=== PATIENT | male | born 1995 | race African-American/Black ===

== ENCOUNTER 2017-02-20 06:26 | Emergency (ER) | payer SELFPAY ==
[2017-02-20] MEDS ORDERED: SODIUM CHLOR 0.9% 1000 ML INJ 1,000 ML IV SCH (07:09)
--- NOTE | 2017-02-20 07:13 | PD ---
HPI Chief Complaint: Flank/Kidney Pain Time Seen by Provider: 07:03 Travel History International Travel<30 days: No Contact w/Intl Traveler<30days: No Traveled to known affect area: No History of Present Illness HPI The patient is a 21-year-old [place] male who presents emergency department for flank pain and abdominal pain. The patient states his pain started last night, is located in the left mid back and left lower flank, radiates to left testicle. He denies any actual testicular pain. He does note mild discomfort with urination but denies any actual dysuria or hematuria. The patient does have a history of nephrolithiasis and previous kidney infections, denies any previous abdominal surgeries. The patient denies any nausea, vomiting, diarrhea, or change in bowel habits. The patient's last bowel movement was 2 days ago. He denies any associated fever, chills, or sweats. Symptoms are moderate without any alleviating or exacerbating factors. PFSH Past Medical History Medical History: Denies Significant Hx Diminished Hearing: No Medical other: Yes (KIDNEY INFECTIONS ) Past Surgical History Surgical History: No Previous Surgery Social History Alcohol Use: No Tobacco Use: Yes (1 PPD) Substance Use: No Allergies-Medications (Allergen,Severity, Reaction): Coded Allergies: No Known Allergies (Unverified , 02/20/17) Reported Meds & Prescriptions Reported Meds & Active Scripts Active No Active Prescriptions or Reported Medications Review of Systems Except as stated in HPI: all other systems reviewed are Neg General / Constitutional: No: Fever Cardiovascular: No: Chest Pain or Discomfort Respiratory: No: Shortness of Breath Gastrointestinal: Positive: Abdominal Pain, No: Nausea, Vomiting, Diarrhea Genitourinary: Positive: Flank Pain, No: Dysuria Skin: No Rash Physical Exam Narrative GENERAL: Awake, alert, pleasant 21-year-old [place] male who appears his stated age and is in no acute respiratory distress. SKIN: Focused skin assessment warm/dry. HEAD: Atraumatic. Normocephalic. EYES: Pupils equal and round. No scleral icterus. No injection or drainage. ENT: No nasal bleeding or discharge. Mucous membranes pink and moist. NECK: Trachea midline. No JVD. CARDIOVASCULAR: Regular rate and rhythm. No murmur appreciated. RESPIRATORY: No accessory muscle use. Clear to auscultation. Breath sounds equal bilaterally. GASTROINTESTINAL: Abdomen soft, non-tender, nondistended. Negative Garcia's. Negative McBurney's. Back: Negative CVA tenderness. Genitourinary: Circumcised phallus. Both testicles are descended, nontender to palpation. No tenderness over the epididymis. MUSCULOSKELETAL: No obvious deformities. No clubbing. No cyanosis. No edema. NEUROLOGICAL: Awake and alert. No obvious cranial nerve deficits. Motor grossly within normal limits. Normal speech. PSYCHIATRIC: Appropriate mood and affect; insight and judgment normal. Data Data Orders Complete Blood Count With Diff (02/20/17 07:09) Comprehensive Metabolic Panel (02/20/17 07:09) Lipase (02/20/17 07:09) Urinalysis - C+S If Indicated (02/20/17 07:09) Ct Abd/Pel W/O Iv Contrast (02/20/17 07:09) Iv Access Insert/Monitor (02/20/17 07:09) Ecg Monitoring (02/20/17 07:09) Oximetry (02/20/17 07:09) Morphine Inj (Morphine Inj) (02/20/17 07:15) Ondansetron Inj (Zofran Inj) (02/20/17 07:15) Sodium Chlor 0.9% 1000 Ml Inj (Ns 1000 M (02/20/17 07:09) Sodium Chloride 0.9% Flush (Ns Flush) (02/20/17 07:15) Ketorolac Inj (Toradol Inj) (02/20/17 07:15) Labs Laboratory Tests Test 02/20/17 02/20/17 06:55 08:10 White Blood Count 8.7 TH/MM3 Red Blood Count 5.45 MIL/MM3 Hemoglobin 15.4 GM/DL Hematocrit 47.8 % Mean Corpuscular Volume 87.7 FL Mean Corpuscular Hemoglobin 28.3 PG Mean Corpuscular Hemoglobin 32.2 % Concent Red Cell Distribution Width 14.0 % Platelet Count 248 TH/MM3 Mean Platelet Volume 8.1 FL Neutrophils (%) (Auto) 51.2 % Lymphocytes (%) (Auto) 38.1 % Monocytes (%) (Auto) 8.5 % Eosinophils (%) (Auto) 1.5 % Basophils (%) (Auto) 0.7 % Neutrophils # (Auto) 4.4 TH/MM3 Lymphocytes # (Auto) 3.3 TH/MM3 Monocytes # (Auto) 0.7 TH/MM3 Eosinophils # (Auto) 0.1 TH/MM3 Basophils # (Auto) 0.1 TH/MM3 CBC Comment DIFF FINAL Differential Comment Urine Color YELLOW Urine Turbidity CLEAR Urine pH 6.0 Urine Specific [place] 1.025 Urine Protein NEG mg/dL Urine Glucose (UA) NEG mg/dL Urine Ketones NEG mg/dL Urine Occult Blood NEG Urine Nitrite NEG Urine Bilirubin NEG Urine Urobilinogen 2.0 MG/DL Urine Leukocyte Esterase NEG Urine WBC LESS THAN 1 /hpf Urine Squamous Epithelial <1 /hpf Cells Urine Mucus FEW /lpf Microscopic Urinalysis Comment CULT NOT INDICATED Sodium Level 142 MEQ/L Potassium Level 4.1 MEQ/L Chloride Level 110 MEQ/L Carbon Dioxide Level 26.7 MEQ/L Anion Gap 5 MEQ/L Blood Urea Nitrogen 17 MG/DL Creatinine 1.10 MG/DL Estimat Glomerular Filtration 102 ML/MIN Rate Random Glucose 78 MG/DL Calcium Level 8.4 MG/DL Total Bilirubin 0.3 MG/DL Aspartate Amino Transf 13 U/L (AST/SGOT) Alanine Aminotransferase 16 U/L (ALT/SGPT) Alkaline Phosphatase 93 U/L Total Protein 6.3 GM/DL Albumin 3.3 GM/DL Lipase 121 U/L [facility] Medical Decision Making Medical Screen Exam Complete: Yes Emergency Medical Condition: Yes Medical Record Reviewed: Yes Interpretation(s) Last Impressions Abdomen/Pelvis CT 02/20/17 0709 Signed Impressions: Service Date/Time: Monday, February 20, 2017 07:22 - CONCLUSION: Very limited study due to lack of peritoneal fat and lack of intravenous/oral contrast. Large fluid collection or acute abnormality is not seen. Normal appendix not visualized. No renal calculi. Barron Benz MD Laboratory Tests Test 02/20/17 02/20/17 06:55 08:10 White Blood Count 8.7 TH/MM3 Red Blood Count 5.45 MIL/MM3 Hemoglobin 15.4 GM/DL Hematocrit 47.8 % Mean Corpuscular Volume 87.7 FL Mean Corpuscular Hemoglobin 28.3 PG Mean Corpuscular Hemoglobin 32.2 % Concent Red Cell Distribution Width 14.0 % Platelet Count 248 TH/MM3 Mean Platelet Volume 8.1 FL Neutrophils (%) (Auto) 51.2 % Lymphocytes (%) (Auto) 38.1 % Monocytes (%) (Auto) 8.5 % Eosinophils (%) (Auto) 1.5 % Basophils (%) (Auto) 0.7 % Neutrophils # (Auto) 4.4 TH/MM3 Lymphocytes # (Auto) 3.3 TH/MM3 Monocytes # (Auto) 0.7 TH/MM3 Eosinophils # (Auto) 0.1 TH/MM3 Basophils # (Auto) 0.1 TH/MM3 CBC Comment DIFF FINAL Differential Comment Urine Color YELLOW Urine Turbidity CLEAR Urine pH 6.0 Urine Specific [place] 1.025 Urine Protein NEG mg/dL Urine Glucose (UA) NEG mg/dL Urine Ketones NEG mg/dL Urine Occult Blood NEG Urine Nitrite NEG Urine Bilirubin NEG Urine Urobilinogen 2.0 MG/DL Urine Leukocyte Esterase NEG Urine WBC LESS THAN 1 /hpf Urine Squamous Epithelial <1 /hpf Cells Urine Mucus FEW /lpf Microscopic Urinalysis Comment CULT NOT INDICATED Sodium Level 142 MEQ/L Potassium Level 4.1 MEQ/L Chloride Level 110 MEQ/L Carbon Dioxide Level 26.7 MEQ/L Anion Gap 5 MEQ/L Blood Urea Nitrogen 17 MG/DL Creatinine 1.10 MG/DL Estimat Glomerular Filtration 102 ML/MIN Rate Random Glucose 78 MG/DL Calcium Level 8.4 MG/DL Total Bilirubin 0.3 MG/DL Aspartate Amino Transf 13 U/L (AST/SGOT) Alanine Aminotransferase 16 U/L (ALT/SGPT) Alkaline Phosphatase 93 U/L Total Protein 6.3 GM/DL Albumin 3.3 GM/DL Lipase 121 U/L Differential Diagnosis Differential diagnosis includes UTI, pyelonephritis, nephrolithiasis, epididymitis, constipation, diverticulitis. Narrative Course IV was established, labs are drawn and sent, and the patient was placed on cardiac telemetry monitoring and continuous pulse oximetry monitoring. The patient was administered morphine, Toradol, Zofran, and IV fluids. Patient's white count is unremarkable. UA is negative. CT is unremarkable. Laboratory evaluation is unremarkable, LFTs and lipase are normal. Patient's vitals are stable. I had a discussion with the patient regarding possibility of gonorrhea/ chlamydia. However, patient has only had one sexual partner in the last year, his fiance, he denies any history of previous STI. Patient is currently asymptomatic. Patient stable for outpatient follow-up. Diagnosis Primary Impression: Left flank pain Patient Instructions: General Instructions Additional Instructions: Please provide a patient a copy of CT results and lab results at discharge. Follow-up with your primary physician. Return if symptoms worsen or progress. Med/Other Pt SpecificInfo: No Change to Meds Scripts No Active Prescriptions or Reported Meds Disposition: 01 DISCHARGE HOME Condition: Stable Ren Coppola MD Feb 20, 2017 07:13
[2017-02-20] MEDS ORDERED: SODIUM CHLORIDE 0.9% FLUSH 10 ML FLUSH IV FLUSH PRN (07:15)
[2017-02-20] MEDS ORDERED: KETOROLAC TROMETHAMINE 30 MG/ML (IVP) VIAL IVP ONE (07:15)
[2017-02-20] MEDS ORDERED: ONDANSETRON HCL 4 MG/2 ML VIAL IVP ONE (07:15)
[2017-02-20] MEDS ORDERED: MORPHINE SULFATE 4 MG/ML INJ IV PUSH ONE (07:15)
[2017-02-20 07:41] LABS: AUTOMATED NEUTROPHIL # 4.4 TH/MM3 (1.8-7.7); BASOPHIL # 0.1 TH/MM3 (0-0.2); BASOPHIL % 0.7 % (0.0-2.0); EOSINOPHIL # 0.1 TH/MM3 (0-0.4); EOSINOPHIL % 1.5 % (0.0-4.0); HEMATOCRIT 47.8 % (39.0-51.0); HEMO FLAGS DIFF FINAL; LYMPH % 38.1 % (9.0-44.0); LYMPHOCYTE # 3.3 TH/MM3 (1.0-4.8); MEAN CELL VOLUME 87.7 FL (80.0-100.0); MEAN CORPUSCULAR HEMOGLOBIN 28.3 PG (27.0-34.0); MEAN CORPUSCULAR HGB CONC 32.2 % (32.0-36.0); MONO % 8.5 % (0.0-8.0); NEUT % 51.2 % (16.0-70.0); PLATELET COUNT 248 TH/MM3 (150-450); RED BLOOD COUNT 5.45 MIL/MM3 (4.50-5.90); WHITE BLOOD COUNT 8.7 TH/MM3 (4.0-11.0)
[2017-02-20 07:48] LABS: BLOOD, URINE NEG (NEG); GLUCOSE,URINE NEG (NEG); KETONE, URINE NEG (NEG); MUCUS URINE FEW /lpf (OCC); NITRITE,URINE NEG (NEG); SQUAMOUS EPITHELIAL CELL URINE <1 /hpf (0-5); URINE COLOR YELLOW (YELLW/STRAW)
[2017-02-20 07:54] LABS: COMMENT (UR) CULT NOT INDICATED; CULTURE IF INDICATED CULT NOT INDICATED
--- NOTE | 2017-02-20 08:02 | RADRPT ---
EXAM DATE/TIME: 02/20/2017 07:22 [facility] COMPARISON: No previous studies available for comparison. INDICATIONS : Lower quadrant and back pain ORAL CONTRAST: No oral contrast ingested. RADIATION DOSE: 2.87 CTDIvol (mGy) MEDICAL HISTORY : Renal calculi. SURGICAL HISTORY : None. ENCOUNTER: Initial ACUITY: 1 day PAIN SCALE: 7/10 LOCATION: Bilateral lower quadrant TECHNIQUE: Volumetric scanning of the abdomen and pelvis was performed. Using automated exposure control and ad justment of the mA and/or kV according to patient size, radiation dose was kept as low as reasonably achievable to obtain optimal diagnostic quality images. FINDINGS: LOWER LUNGS: The visualized lower lungs are clear. LIVER: Homogeneous density without lesion. There is no dilation of the biliary tree. No calcified gallston es. SPLEEN: Normal size without lesion. PANCREAS: Within normal limits. KIDNEYS: Normal in size and shape. There is no mass, stone, or hydronephrosis. ADRENAL GLANDS: Within normal limits. VASCULAR: There is no aortic aneurysm. BOWEL/MESENTERY: The stomach, small bowel, and colon demonstrate no acute abnormality. There is no free intraperitone al air or fluid. ABDOMINAL WALL: Within normal limits. RETROPERITONEUM: There is no lymphadenopathy. BLADDER: No wall thickening or mass. REPRODUCTIVE: Within normal limits. INGUINAL: There is no lymphadenopathy or hernia. MUSCULOSKELETAL: Within normal limits for patient age. CONCLUSION: Very limited study due to lack of peritoneal fat and lack of intravenous/oral contrast. Large fluid c ollection or acute abnormality is not seen. Normal appendix not visualized. No renal calculi. Barron Benz MD on February 20, 2017 at 7:57 Board Certified Radiologist. This report was verified electronically.
[2017-02-20 08:37] LABS: ANION GAP 5 MEQ/L (5-15)
[2017-02-20 08:40] LABS: ALKALINE PHOSPHATASE 93 U/L (45-117); ALT (GPT) 16 U/L (12-78); AST (GOT) 13 U/L (15-37); BICARBONATE 26.7 MEQ/L (21.0-32.0); BLOOD UREA NITROGEN 17 MG/DL (7-18); CHLORIDE 110 MEQ/L (98-107); GLOMERULAR FILTRATION RATE 102 ML/MIN (>89); SODIUM (NA) 142 MEQ/L (136-145); TOTAL BILIRUBIN ADULT 0.3 MG/DL (0.2-1.0)
[2017-02-20 08:41] LABS: POTASSIUM 4.1 MEQ/L (3.5-5.1)
[2017-02-20 10:27] VITALS: O2SAT 99
== END 2017-02-20 10:34 | disposition home or self-care (01) ==
LOC: NEPC 06:26
DX: M54.6 Pain in thoracic spine (principal); R10.32 Left lower quadrant pain; F17.200 Nicotine dependence, unspecified, uncomplicated; Z87.448 Personal history of other diseases of urinary system
CPT/HCPCS: 74176; 80053; 81001; 83690; 85025; 96374; 96375; 99284; J1885; J2270; J2405; J7030